=== PATIENT | female | born 1965 | race Caucasian/White ===

== ENCOUNTER → 2020-07-20 | Outpatient (CLI) | payer OTHER ==
--- NOTE | 2020-07-20 18:34 | REP ---
INDICATION: PAIN OF FOOT. COMPARISON: 08/18/2010. TECHNIQUE: Multiple sequences obtained in the axial, coronal and sagittal planes. FINDINGS: The osseous structures of the left foot demonstrate normal bone marrow signal. There is no bone marrow edema or occult fracture. There is no malalignment. Tendons and ligaments at the ankle are intact. The plantar tendon is intact. There is no plantar fasciitis. The flexor and extensor tendons of the foot are intact with no tenosynovitis. There is no ganglion cyst. No joint effusion is seen. IMPRESSION: Negative MRI left foot. <Electronically signed by Chapin Turner > 07/20/20 [id number]
--- NOTE | 2020-07-20 18:39 | REP ---
INDICATION: PAIN IN FEET. COMPARISON: None. TECHNIQUE: Multiple sequences obtained in the axial, coronal and sagittal planes. FINDINGS: The osseous structures of the right foot demonstrate normal bone marrow signal. There is no bone marrow edema or occult fracture. There is no malalignment. Tendons and ligaments at the ankle are intact. Plantar tendon is intact. There is no plantar fasciitis. The flexor and extensor tendons of the foot are intact with no tenosynovitis. No ganglion cyst is seen. There is normal amount of joint fluid. No other abnormalities are seen. IMPRESSION: Negative MRI right foot. <Electronically signed by Chapin Turner > 07/20/20 [id number]
== END ==
LOC: M RAD 14:36
PROVIDERS: ATTEND Podiatrist
DX: M79.673 Pain in unspecified foot (principal)

== ENCOUNTER → 2021-06-30 | Outpatient (CLI) | payer OTHER | LOC: M LABSMTC 10:25 | PROVIDERS: ATTEND Pediatrics | DX: Z20.822 Contact with and (suspected) exposure to COVID-19 (principal) | CPT/HCPCS: C9803; U0003 ==

== ENCOUNTER → 2021-10-19 | Outpatient (CLI) | payer OTHER | LOC: M WHC 14:43 | PROVIDERS: ATTEND Family Medicine | DX: Z12.31 Encounter for screening mammogram for malignant neoplasm of breast (principal); Z78.0 Asymptomatic menopausal state; Z85.828 Personal history of other malignant neoplasm of skin ==

== ENCOUNTER → 2022-02-09 | Outpatient (CLI) | payer OTHER ==
[~2022-02-09] MED LIST: ESTR1TAB PO; MEDR5TAB3 PO
== END ==
LOC: M LABSMTC 09:15
PROVIDERS: ATTEND Anesthesiology
DX: Z01.818 Encounter for other preprocedural examination (principal); Z11.52 Encounter for screening for COVID-19

== ENCOUNTER 2022-02-14 07:47 | Day surgery (SDC) | payer OTHER ==
[~2022-02-14] VITALS: Ht 160 cm; Wt 72.5 kg
[2022-02-14] MEDS ORDERED: NS 1,000 ML IV ONE (07:55)
[2022-02-14] MEDS ORDERED: LIDOCAINE 2% 100MG/5ML SDV (FOR ANES.) As Ordered ONE (09:37)
[2022-02-14] MEDS ORDERED: propofoL 200 MG/20 ML VIAL As Ordered ONE (09:37)
[2022-02-14 10:32] VITALS: BP 131/64
== END 2022-02-14 10:32 | disposition home or self-care (01) ==
LOC: M OPP 07:47
PROVIDERS: ATTEND Surgery
DX: Z53.8 Procedure and treatment not carried out for other reasons (principal); Z12.11 Encounter for screening for malignant neoplasm of colon; Q43.8 Other specified congenital malformations of intestine; Z79.818 Long term (current) use of other agents affecting estrogen receptors and estrogen levels

== ENCOUNTER → 2023-02-06 | Outpatient (CLI) | payer OTHER | LOC: M WHC 12:30 | PROVIDERS: ATTEND Nurse Practitioner Family | DX: Z12.31 Encounter for screening mammogram for malignant neoplasm of breast (principal) ==

== ENCOUNTER → 2023-03-31 | Outpatient (CLI) | payer OTHER | LOC: M RAD 11:54 | PROVIDERS: ATTEND Nurse Practitioner Family | DX: M54.17 Radiculopathy, lumbosacral region (principal) ==

== ENCOUNTER → 2023-11-16 | Outpatient (CLI) | payer OTHER | LOC: M WHC 12:00 | PROVIDERS: ATTEND Nurse Practitioner Family | DX: N85.8 Other specified noninflammatory disorders of uterus (principal); R10.2 Pelvic and perineal pain ==

== ENCOUNTER → 2025-01-15 | Outpatient (CLI) | payer OTHER | LOC: M WHC 14:58 | PROVIDERS: ATTEND Nurse Practitioner Family | DX: Z12.31 Encounter for screening mammogram for malignant neoplasm of breast (principal); R92.323 Mammographic fibroglandular density, bilateral breasts ==